=== PATIENT | female | born 1965 | race Caucasian/White ===

== ENCOUNTER → 2021-12-31 09:18 | Outpatient (CLI) | payer BC, SELFPAY ==
--- NOTE | 2021-12-31 09:23 | CA_ITS ---
FINAL REPORT TECHNIQUE: Color Doppler, duplex Doppler and compression sonography of the left lower extremity deep venous systems was performed. CLINICAL HISTORY: Left posterior knee pain x 1 month FINDINGS: There is no evidence of deep venous thrombosis from the level of the groin to the calf. The veins are patent and compressible. IMPRESSION: No evidence of deep venous thrombosis left lower extremity. Reviewed, Interpreted and Dictated by Mahesh Storey III, MD Transcribed by Ailin Oliver Authenticated by Mahesh Storey III, MD on 12/31/2021 10:38:24 AM [facility]
== END ==
PROVIDERS: PCP Internal Medicine; Visit Provider Internal Medicine
DX: M79.662 Pain in left lower leg (principal)
CPT/HCPCS: 93971

== ENCOUNTER → 2022-01-07 16:48 | Outpatient (CLI) | payer BC, SELFPAY ==
[2022-01-07 17:23] LABS: Basophils # 0.1 K/mm3 (0-0.2); Basophils % 1.3 % (0.1-2.0); Eosinophils # 0.1 K/mm3 (0.0-0.4); Eosinophils % 2.5 % (0.1-12.0); Hematocrit 46.3 % (37.0-47.0); Hemoglobin 15.4 g/dL (12.2-16.2); Lymphocytes # 1.6 K/mm3 (0.7-4.5); Lymphocytes % 31.3 % (10-50); Mean Corpuscular HGB Conc 33.1 g/dL (31.8-35.4); Mean Corpuscular Hemoglobin 31.2 pg (27.0-31.2); Mean Corpuscular Volume 94.1 fl (81-99); Mean Platelet Volume 9.9 fl (7.4-10.4); Monocytes # 0.3 K/mm3 (0.1-1.0); Monocytes % 6.6 % (1.7-9.3); Neutrophils % 58.3 % (37.0-80.0); Platelet Count 266 K/mm3 (142-424); Red Blood Count 4.92 M/mm3 (4.20-5.40); Red Cell Distribution Width 13.4 % (11.5-17.5); White Blood Count 5.2 K/mm3 (4.8-10.8)
[2022-01-07 17:47] LABS: Alanine Aminotransferase 84 U/L (12-78); Aspartate Amino Transferase 49 U/L (14-36); Blood Urea Nitrogen 14 mg/dl (7-17); Calcium 8.9 mg/dl (8.4-10.2); Carbon Dioxide 26 mmol/L (22.0-30.0); Estimated Glomerular Filt Rate 87 ml/min (>60); GFR (African American) 105 ML/MIN (>60); Glucose 80 mg/dl (74-100); HDL Cholesterol 50 mg/dl (40-60); Potassium 4.2 mmoL/L (3.5-5.1); Sodium 137 mmol/L (136-145)
[2022-01-07 17:50] LABS: Albumin Level 4.2 g/dl (3.5-5.0); Albumin/Globulin Ratio 1.9 (1.1-1.8); Alkaline Phosphatase 95 U/L (38-126); Anion Gap 10.2 mEq/L (5-15); Bilirubin,Total 0.9 mg/dl (0.2-1.3); Chloride 105 mmol/L (98-107); Chol/HDL Ratio 4.4 (1-3.5); Cholesterol 222 mg/dl (140-200); Globulin 2.2 g/dL (1.3-3.2); Total Protein,Serum 6.4 g/dl (6.3-8.2); Triglycerides 129 mg/dl (30-150); VLDL Cholesterol 26 mg/dL (0-40)
[2022-01-07 17:58] LABS: Direct LDL Cholesterol 132.51 mg/dL (100-129)
[2022-01-07 18:18] LABS: Thyroid Stimulating Hormone 1.69 uIU/mL (0.465-4.68)
== END ==
PROVIDERS: Visit Provider Internal Medicine
DX: E78.5 Hyperlipidemia, unspecified (principal); N94.5 Secondary dysmenorrhea; Z83.3 Family history of diabetes mellitus
CPT/HCPCS: 80053; 80061; 84443; 85025

== ENCOUNTER → 2022-01-24 09:09 | Outpatient (CLI) | payer BC, SELFPAY ==
--- NOTE | 2022-01-24 09:09 | XR_ITS ---
FINAL REPORT CLINICAL HISTORY: knee pain FINDINGS: LEFT KNEE Four views were obtained. There is no acute fracture or dislocation. There are mild degenerative changes. There is no joint effusion seen.. No soft tissue abnormality is identified. IMPRESSION: Degenerative changes with no acute process. Reviewed, Interpreted and Dictated by Mahesh Storey III, MD Transcribed by Niurka Nava Authenticated by Mahesh Storey III, MD on 01/24/2022 10:06:03 AM [facility]
--- NOTE | 2022-01-24 09:09 | XR_ITS ---
FINAL REPORT CLINICAL HISTORY: knee pain FINDINGS: RIGHT KNEE Four views were obtained. There is no acute fracture or dislocation. There are mild degenerative changes. No joint effusion is seen. No soft tissue abnormality is identified. IMPRESSION: Degenerative changes with no acute process. Reviewed, Interpreted and Dictated by Mahesh Storey III, MD Transcribed by Niurka Nava Authenticated by Mahesh Storey III, MD on 01/24/2022 10:06:[address] [facility]
--- NOTE | 2022-01-24 09:12 | US_ITS ---
FINAL REPORT CLINICAL HISTORY: ELEVATED LIVER ENZYMES FINDINGS: Sonographic images of the right upper quadrant were obtained. The pancreas is partially obscured. The liver has increased echogenicity consistent with fatty infiltration. There are gallstones within the gallbladder. There is no evidence of biliary ductal dilatation. The common duct measures 4mm. Limited images of the right kidney are unremarkable. IMPRESSION: Cholelithiasis. Fatty infiltrated liver. Reviewed, Interpreted and Dictated by Mahesh Storey III, MD Transcribed by Ailin Oliver Authenticated by Mahesh Storey III, MD on 01/24/2022 12:49:18 PM [facility]
[2022-01-24 12:19] LABS: Ferritin 170 ng/ml (11.1-264)
[2022-01-25 11:55] LABS: Hep B Core Ab, Total Negative (Negative); Hep B Surface Ab, Qual Non Reactive (.); Hepatitis C Antibody <0.1 s/co ratio (0.0-0.9)
[2022-01-25 16:20] LABS: Mitochondrial (M2) Antibody <20.0 Units (0.0-20.0)
[2022-01-26 15:25] LABS: Antinuclear Antibodies, IFA Negative (.)
== END ==
PROVIDERS: PCP Internal Medicine; Visit Provider Internal Medicine
DX: M25.562 Pain in left knee (principal); M25.561 Pain in right knee; R74.8 Abnormal levels of other serum enzymes
CPT/HCPCS: 36415; 73564; 76705; 82728; 86038; 86256; 86704; 86706; 87380

== ENCOUNTER → 2022-10-10 08:39 | Outpatient (CLI) | payer OTHER, SELFPAY | PROVIDERS: PCP Student in an Organized Health Care Education/Training Program; Visit Provider Student in an Organized Health Care Education/Training Program | DX: R05.9 Cough, unspecified (principal) | CPT/HCPCS: 87070 ==

== ENCOUNTER 2024-09-21 13:16 | Outpatient (CLI) | payer OTHER, SELFPAY ==
--- NOTE | 2024-09-21 13:23 | CA_ITS ---
FINAL REPORT TECHNIQUE: Compression magallanes scale and Doppler evaluation CLINICAL HISTORY: SWELLING LLE X 1 MTH,NKI COMPARISON: None FINDINGS: Femoral and popliteal veins show normal compressibility and flow. Visualized portion of the calf veins are patent by Doppler exam. IMPRESSION: No evidence of left lower extremity deep venous thrombosis Reviewed, Interpreted and Dictated by Aden Sherwood MD Transcribed by Shaina Jones Authenticated and [facility]
== END 2024-09-21 23:59 | disposition home or self-care (01) ==
LOC: RT 13:16
PROVIDERS: PCP Internal Medicine; Visit Provider Internal Medicine
DX: M79.89 Other specified soft tissue disorders (principal)
CPT/HCPCS: 93971